=== PATIENT | female | born 2000 | race Caucasian/White ===

== ENCOUNTER 2021-01-12 06:30 | Inpatient (IN) | payer OTHER ==
[2021-01-12] MEDS ORDERED: Ondansetron PF 4 MG/2 ML Vial ONE ×2 (08:06→09:19)
[2021-01-12] MEDS ORDERED: Scopolamine 1.5 mg/72 hour Patch ONE (08:06)
[2021-01-12] MEDS ORDERED: Piperacillin/Tazobactam 3.375 GM VIAL ONE ×2 (08:06→15:57)
[2021-01-12] MEDS ORDERED: Sodium Chloride 0.9% 100 ML ONE ×3 (08:06→15:57)
[2021-01-12] MEDS ORDERED: Ketorolac Tromethamine 30 MG/ML VIAL ONE (08:06)
[2021-01-12] MEDS ORDERED: Lidocaine 1% w/Epinephrine 1:100K 20 ML VIAL ONE (08:58)
[2021-01-12] MEDS ORDERED: Bupivacaine PF 0.5% 30 ML VIAL ONE (08:58)
[2021-01-12] MEDS ORDERED: Famotidine/PF 20 mg/2ml Vial ONE (09:06)
[2021-01-12] MEDS ORDERED: Midazolam HCl 2 mg/2 ml Vial ONE (09:06)
[2021-01-12] MEDS ORDERED: Fentanyl 100 MCG/2 ML VIAL ONE ×2 (09:06→11:15)
[2021-01-12] MEDS ORDERED: Ketamine 50 MG/ML (10ML VIAL) ONE (09:06)
[2021-01-12] MEDS ORDERED: Lidocaine 1% PF 5 ML VIAL ONE (09:19)
[2021-01-12] MEDS ORDERED: Succinylcholine 200 MG/10 ml SYRINGE FS ONE (09:19)
[2021-01-12] MEDS ORDERED: Rocuronium Bromide 10 MG/ML (10ML VIAL) ONE (09:19)
[2021-01-12] MEDS ORDERED: Metoclopramide HCl 10 MG/2 ML VIAL ONE (09:19)
[2021-01-12] MEDS ORDERED: PROPOFOL 200 MG/20 ML VIAL ONE (09:19)
[2021-01-12] MEDS ORDERED: PHENYLEPHRINE-NS 100 MCG/ML 10 ML SYRINGE ONE (09:19)
[2021-01-12] MEDS ORDERED: Glycopyrrolate 0.2 MG/ML 5 ML SYRINGE ONE (09:19)
[2021-01-12] MEDS ORDERED: ePHEDrine 50 MG/ML VIAL ONE (09:19)
[2021-01-12] MEDS ORDERED: Ondansetron HCl/PF 4 MG/2 ML Vial IVP PRN (09:55)
[2021-01-12] MEDS ORDERED: Promethazine HCl 25 MG/ML VIAL IM PRN (09:55)
[2021-01-12] MEDS ORDERED: HYDROmorphone 2 MG/ML VIAL SLOW IVP PRN (09:55)
[2021-01-12] MEDS ORDERED: Meperidine HCl/PF 25 MG/ML VIAL SLOW IVP PRN (09:55)
[2021-01-12] MEDS ORDERED: Promethazine HCl 25 MG/ML VIAL IVPB PRN (09:55)
[2021-01-12] MEDS ORDERED: Ondansetron PF 4 MG/2 ML Vial IVP PRN (10:41)
[2021-01-12] MEDS ORDERED: Morphine 2 MG/ML VIAL SLOW IVP PRN (10:41)
[2021-01-12] MEDS ORDERED: Ondansetron ODT 4 MG TAB PO PRN (10:41)
[2021-01-12] MEDS ORDERED: Acetaminophen 500 MG TAB PO PRN (10:44)
[2021-01-12] MEDS: Piperacillin/Tazobactam 3.375 GM in Sodium Chloride 0.9% 100 ML IVPB SCH (17:00)
[2021-01-12 17:06] VITALS: BMI 24.4
[2021-01-12] MEDS: D5 1/2 NS w/20 mEq KCL 1,000 ML IV SCH ×2 (18:20→21:16)
[2021-01-12] MEDS: Ketorolac Tromethamine 30 MG/ML VIAL IVP PRN (21:14)
[2021-01-12] MEDS: Enoxaparin Sodium 40 MG/0.4 ML SYRINGE SC SCH (21:14)
[2021-01-12] MEDS: Famotidine 20 MG TAB PO SCH (21:14)
[2021-01-12] MEDS: Morphine 4 MG/ML VIAL SLOW IVP PRN (21:15)
[2021-01-13] MEDS: Piperacillin/Tazobactam 3.375 GM in Sodium Chloride 0.9% 100 ML IVPB SCH ×4 (00:08→16:22)
[2021-01-13] MEDS: Morphine 4 MG/ML VIAL SLOW IVP PRN ×3 (00:13→15:53)
[2021-01-13] MEDS: D5 1/2 NS w/20 mEq KCL 1,000 ML IV SCH ×2 (06:06→09:21)
[2021-01-13 06:13] LABS: Hemoglobin 10.6 g/dL (12.0-16.0); Mean Corpuscular HGB CONC 34.6 g/dL (32.0-36.0); Mean Corpuscular Hemoglobin 32.3 pg (25.0-35.0); Mean Corpuscular Volume 93.2 fL (78.0-98.0); Mean Platelet Volume 9.3 fL (7.4-10.4); Platelet Count 167 thou/uL (130-400); RBC Distribution Width 11.5 % (11.5-14.5); Red Blood Cell (RBC) Count 3.28 mill/uL (4.00-5.20); White Blood Cell (WBC) Count 15.3 thou/uL (4.8-10.8)
[2021-01-13 06:26] LABS: Anion Gap 8 mmol/L (10-20); BUN (Urea Nitrogen) 9 mg/dL (7.0-18.7); Calc. Creatinine Clearance 121 mL/min (70-130); Calcium 7.9 mg/dL (7.8-10.44); Carbon Dioxide 23 mmol/L (22-29); Chloride 106 mmol/L (98-107); Glucose 136 mg/dL (70-105); Potassium 4.1 mmol/L (3.5-5.1); Sodium 133 mmol/L (136-145)
[2021-01-13 08:26] LABS: Band 59 % (5-11); Lymphocytes 8 % (28-48); MDiff Complete? YES; Monocytes 2 % (0-4); Neutrophil 31 % (31-61); Platelet Morphology Comment Appears Adequate; Polychromasia SLIGHT = 2-3 cells (100X) (0-2/hpf); Reflex for Review?? NO
[2021-01-13] MEDS: Famotidine 20 MG TAB PO SCH ×3 (09:17→21:36)
[2021-01-13] MEDS: Ketorolac Tromethamine 30 MG/ML VIAL IVP PRN ×2 (09:17→21:36)
[2021-01-13] MEDS: traMADol HCl 50 MG TAB PO PRN (12:47)
[2021-01-13] MEDS ORDERED: SUMAtriptan Succinate 50 MG TAB PO PRN (16:34)
[2021-01-13] MEDS ORDERED: Ondansetron ODT 8 MG TAB PO PRN (17:07)
[2021-01-13] MEDS: Sodium Chloride 0.9% 1,000 ML IV SCH (18:49)
[2021-01-13] MEDS: Enoxaparin Sodium 40 MG/0.4 ML SYRINGE SC SCH (21:33)
[2021-01-13] MEDS: Propranolol 40 MG TAB PO SCH (21:36)
[2021-01-14] MEDS: Piperacillin/Tazobactam 3.375 GM in Sodium Chloride 0.9% 100 ML IVPB SCH ×2 (00:48→08:52)
[2021-01-14] MEDS: Sodium Chloride 0.9% 1,000 ML IV SCH ×2 (03:58→18:56)
[2021-01-14] MEDS: Morphine 4 MG/ML VIAL SLOW IVP PRN (04:01)
[2021-01-14 05:59] LABS: #Eosinphils 0.2 thou/uL (0.0-0.7); #Lymphocytes 1.6 thou/uL (1.20-3.40); #Monocytes 0.4 thou/uL (0.11-0.59); #Neutrophils 11.1 thou/uL (1.40-6.50); %Basophils 0.2 % (0.0-1.0); %Eosinophils 1.2 % (0.0-10.0); %Monocytes 2.8 % (0.0-4.0); %Neutrophils 83.8 % (31.0-61.0); Hemoglobin 10.5 g/dL (12.0-16.0); Mean Corpuscular HGB CONC 34.6 g/dL (32.0-36.0); Mean Corpuscular Hemoglobin 32.2 pg (25.0-35.0); Mean Corpuscular Volume 93.2 fL (78.0-98.0); Platelet Count 177 thou/uL (130-400); RBC Distribution Width 11.4 % (11.5-14.5); Red Blood Cell (RBC) Count 3.25 mill/uL (4.00-5.20); White Blood Cell (WBC) Count 13.2 thou/uL (4.8-10.8)
[2021-01-14 06:22] LABS: Anion Gap 9 mmol/L (10-20); BUN (Urea Nitrogen) 8 mg/dL (7.0-18.7); Calc. Creatinine Clearance 120 mL/min (70-130); Calcium 8.1 mg/dL (7.8-10.44); Carbon Dioxide 22 mmol/L (22-29); Chloride 108 mmol/L (98-107); Glucose 91 mg/dL (70-105); Potassium 4.2 mmol/L (3.5-5.1); Sodium 135 mmol/L (136-145)
[2021-01-14] MEDS: Propranolol 40 MG TAB PO SCH ×2 (08:50→21:33)
[2021-01-14] MEDS: traMADol HCl 50 MG TAB PO PRN ×3 (08:57→21:31)
[2021-01-14] MEDS ORDERED: Cyclobenzaprine 10 MG TAB PO PRN (11:14)
[2021-01-14] MEDS: Famotidine 20 MG TAB PO SCH (21:30)
[2021-01-14] MEDS: Enoxaparin Sodium 40 MG/0.4 ML SYRINGE SC SCH (21:32)
[2021-01-14] MEDS: Amoxicillin/Potassium Clav 875 MG TAB PO SCH (21:32)
[2021-01-15] MEDS: Sodium Chloride 0.9% 1,000 ML IV SCH (03:08)
[2021-01-15] MEDS: traMADol HCl 50 MG TAB PO PRN ×3 (06:13→16:00)
[2021-01-15 07:10] LABS: Hemoglobin 10.4 g/dL (12.0-16.0); Mean Corpuscular Hemoglobin 32.1 pg (25.0-35.0); Mean Corpuscular Volume 91.5 fL (78.0-98.0); Mean Platelet Volume 8.3 fL (7.4-10.4); Platelet Count 196 thou/uL (130-400); RBC Distribution Width 11.2 % (11.5-14.5); Red Blood Cell (RBC) Count 3.25 mill/uL (4.00-5.20); White Blood Cell (WBC) Count 7.7 thou/uL (4.8-10.8)
[2021-01-15] MEDS ORDERED: Non-Formulary Item 1 EACH (Linaclotide [Linzess] 145 MCG Capsule) PO SCH (09:00)
[2021-01-15] MEDS: Famotidine 20 MG TAB PO SCH (09:34)
[2021-01-15] MEDS: Amoxicillin/Potassium Clav 875 MG TAB PO SCH (09:34)
[2021-01-15] MEDS: Propranolol 40 MG TAB PO SCH (09:51)
[2021-01-15 10:03] LABS: Band 28 % (5-11); Eosinophils 3 % (0-10); Lymphocytes 23 % (28-48); MDiff Complete? YES; Metamyelocyte 1 % (0-0); Monocytes 3 % (0-4); Neutrophil 42 % (31-61)
[2021-01-15 11:58] VITALS: BP 115/75; TEMP 97.5
[2021-01-15] MEDS ORDERED: Acetaminophen 500 MG TAB PO SCH (12:00)
[2021-01-15] MEDS ORDERED: Linaclotide [Linzess] 145 MCG Capsule PO SCH (21:00)
== END 2021-01-15 16:20 | disposition home or self-care (01) | DRG 339 ==
LOC: ER/OP 06:30 → SURG A 10:41 → SJJU 16:35
PROVIDERS: ADMIT Specialist; ATTEND Specialist
PROC: 0DTJ4ZZ Resection of Appendix, Percutaneous Endoscopic Approach (ICD-10-PCS; principal; 2021-01-12)
DX: K35.33 Acute appendicitis with perforation, localized peritonitis, and gangrene, with abscess (principal); E87.1 Hypo-osmolality and hyponatremia
CPT/HCPCS: 36415; 80048; 85007; 85025; 85027; 88304; J1650; J1885; J2250; J2270; J2405; J2543; J2704; J2765; J3010; J3480; J3490; S0020; S0028